=== PATIENT | female | born 1950 | race Caucasian/White ===

== ENCOUNTER → 2021-04-02 | Outpatient (CLI) | payer OTHER ==
[2021-04-04 11:15] LABS: RHEUMATOID ARTHRITIS FACTOR <10.0 IU/mL (0.0-13.9)
== END ==
LOC: LAB 14:47
PROVIDERS: Nurse Practitioner Family
DX: M79.641 Pain in right hand (principal); M79.642 Pain in left hand; M54.5 Low back pain; M25.50 Pain in unspecified joint; M79.10 Myalgia, unspecified site; D89.9 Disorder involving the immune mechanism, unspecified; R76.8 Other specified abnormal immunological findings in serum; M48.56XA Collapsed vertebra, not elsewhere classified, lumbar region, initial encounter for fracture; M51.36 Other intervertebral disc degeneration, lumbar region
CPT/HCPCS: 36415; 72072; 72100; 73130; 82550; 83520; 85652; 86140; 86200; 86431